=== PATIENT | female | born 1965 | race Caucasian/White ===

== ENCOUNTER → 2022-07-02 | Outpatient (CLI) | payer BC ==
[~2022-07-02] MED LIST: ECHI400C2 PO; OMEP-173 PO; VITA100093 PO
== END ==
LOC: M LABSMTC 09:55
PROVIDERS: ATTEND Anesthesiology
DX: Z01.812 Encounter for preprocedural laboratory examination (principal); Z20.822 Contact with and (suspected) exposure to COVID-19

== ENCOUNTER 2022-07-07 08:51 | Day surgery (SDC) | payer BC ==
[~2022-07-07] VITALS: Ht 167.6 cm; Wt 84.8 kg
[~2022-07-07 08:51] MED LIST changes: +NS 1,000 ML IV ONE
[2022-07-07] MEDS ORDERED: propofoL 200 MG/20 ML VIAL As Ordered ONE (10:10)
[2022-07-07] MEDS ORDERED: LIDOCAINE 2% 100MG/5ML SDV (FOR ANES.) As Ordered ONE (10:10)
[2022-07-07 10:50] VITALS: BP 140/65
== END 2022-07-07 11:08 | disposition home or self-care (01) ==
LOC: M OPP 08:51
PROVIDERS: ATTEND Internal Medicine Gastroenterology
DX: Z12.11 Encounter for screening for malignant neoplasm of colon (principal); D12.6 Benign neoplasm of colon, unspecified; K64.8 Other hemorrhoids; K44.9 Diaphragmatic hernia without obstruction or gangrene; K21.9 Gastro-esophageal reflux disease without esophagitis; Z87.891 Personal history of nicotine dependence; Z88.1 Allergy status to other antibiotic agents; Z79.899 Other long term (current) drug therapy

== ENCOUNTER → 2024-01-05 | Outpatient (CLI) | payer BC ==
[~2024-01-05] MED LIST changes: -NS 1,000 ML IV ONE
[2024-01-05 18:22] LABS: CARCINOEMBRYONIC ANTIGEN < 2.0 NG/ML (<2.5)
[2024-01-05 18:36] LABS: CA19-9 TUMOR MARKER,CARBOHYDRA 4.2 U/ML (<35.0)
== END ==
LOC: M PLALAB 15:09
PROVIDERS: ATTEND Nurse Practitioner Family
DX: Z12.4 Encounter for screening for malignant neoplasm of cervix (principal); N83.202 Unspecified ovarian cyst, left side; N83.201 Unspecified ovarian cyst, right side
CPT/HCPCS: 36415; 82378; 86301; 86304; 87624; G0123

== ENCOUNTER → 2025-06-20 | Outpatient (REF) | payer BC ==
[~2025-06-20] MED LIST changes: +ECHI400C19 PO; -ECHI400C2 PO
== END ==
LOC: M SFHCWAGY 11:43
PROVIDERS: ATTEND Obstetrics & Gynecology
DX: R39.9 Unspecified symptoms and signs involving the genitourinary system (principal)